=== PATIENT | male | born 1950 | race Caucasian/White ===

== ENCOUNTER → 2017-03-07 | Outpatient (CLI) | payer OTHER, MEDICARE | LOC: MMPC 11:11 | PROVIDERS: ATTEND Surgery | DX: D64.9 Anemia, unspecified (principal); K21.9 Gastro-esophageal reflux disease without esophagitis; R19.7 Diarrhea, unspecified; C61 Malignant neoplasm of prostate; J98.6 Disorders of diaphragm | CPT/HCPCS: 99203; G0463 ==

== ENCOUNTER 2017-03-13 08:36 | Day surgery (SDC) | payer OTHER, MEDICARE ==
[~2017-03-13 08:36] MED LIST: LIDOCAINE 2% VISCOUS(20 MG/1 ML) - 15 ML UD CUP PO ONE; LIDOCAINE MPF 2% - 5 ML (20 MG/1 ML) ONE; LIDOCAINE W/ SODIUM BICARB 0.5 ML SYR ONE; Lactated Ringers 1,000 ML PRIMARY IV ONE; fentaNYL Inj 100 MCG/2 ML VIAL ONE
[2017-03-13 09:17] VITALS: RESP 14
--- NOTE | 2017-03-13 10:31 | GEN.OPNOTE ---
EGD / Colonoscopy Report Surgery Date: 03/13/17 Preoperative Diagnosis: Anemia. Chronic gastroesophageal reflux disease. Diarrhea. Prostate cancer. Postoperative Diagnosis: Same. Procedure: #1 esophagogastroduodenoscopy with biopsy. #2 complete colonoscopy with random biopsies of the right colon, transverse colon, and sigmoid colon because of his history of diarrhea. Surgeon: Osmin Florez MD Anesthesia Provider: Flex Abdullahi CRNA Anesthesia Type: MAC Indications: See preoperative diagnosis. EGD Findings: Esophagus: [Normal] GE Junction : [Normal] Fundus : [Normal] Body : [Normal with gastrojejunostomy.] Prepyloric : [Surgically absent] Small Intestine : [Normal] A lubricated flexible upper endoscope was inserted and passed through the esophagus and stomach and through the small bowel anastomosis into the small bowel. The small bowel was normal. The gastrojejunostomy was widely patent. There were no inflammatory changes at the anastomosis. The gastric mucosa was all unremarkable without inflammation, friability or ulcerations. The scope was withdrawn into the distal esophagus. There is no significant thickened inflammation at the GE junction. The scope was withdrawn through the remainder of a normal-appearing esophagus and brought through the hypopharynx under suction completing that portion of the procedure. Colonoscopy Findings: Prep : [Very good] Cecum : [Normal] Ascending : [Normal] Transverse : [Normal] Sigmoid : [Normal] Rectum : [Minimal inflammation secondary to radiation therapy.] Digital Rectal Exam : [Prostate mildly enlarged and firm.] A lubricated flexible colonoscope was inserted and passed to the blind end of the cecum. The blind end of the cecum and ileocecal valve were clearly seen. Air was aspirated as the scope was withdrawn. Because of his history of diarrhea random biopsies were taken from the right colon, transverse colon, and sigmoid colon. No rectal biopsies were taken secondary to his ongoing radiation therapy. Otherwise the entire colonoscopy was normal without polyp, tumor, neoplastic mass, infectious or inflammatory process. There is some minimal erythema in the rectum. The scope was withdrawn completing the procedure. Patient tolerated all aspects of the procedure well without complication. He was taken to outpatient surgery in stable condition. Follow-up will be with my office on an as-needed basis. We will call the biopsy results when available. Secondary to his ongoing reflux I'm going to switch him from omeprazole 20 mg a day to pantoprazole 40 mg a day and see how he tolerates that.
[2017-03-13 11:06] VITALS: TEMP 97.6
== END 2017-03-13 10:58 | disposition home or self-care (01) ==
LOC: SDSC 08:36
PROVIDERS: ATTEND Surgery
DX: D64.9 Anemia, unspecified (principal); K21.9 Gastro-esophageal reflux disease without esophagitis; R19.7 Diarrhea, unspecified; C61 Malignant neoplasm of prostate
CPT/HCPCS: 00810; 43235 ×2; 45380 ×2; 88305; J2704; J3010; J2001; J7120